=== PATIENT | male | born 1955 | race Caucasian/White ===

== ENCOUNTER 2019-04-18 14:24 | Emergency (ER) | payer BC ==
[~2019-04-18] VITALS: Ht 170.2 cm; Wt 65.9 kg
[2019-04-18 14:34] VITALS: BP 139/81; TEMP 97.8
[2019-04-18] MEDS ORDERED: SYNTHROID0.088 MG/T PO (14:46)
[2019-04-18 15:12] LABS: BASO # 0.1 (0.0-0.2); BASO % 0.4 % (0.0-2.0); EOS # 0.1 (0.0-0.7); EOS % 0.4 % (0-4.0); GRAN % 80.7 % (42.2-75.2); HEMATOCRIT 44.4 % (42.0-52.0); HEMOGLOBIN 15.7 g/dl (13.5-18.0); LYMPH # 1.1 (1.2-3.4); MEAN CELL VOLUME 91 fl (80.0-100.0); MEAN CORPUSCULAR HEMOGLOBIN 32 pg (27.0-31.0); MEAN CORPUSCULAR HGB CONC 35 g/dl (33.0-37.0); MONO # 0.9 (0.1-0.6); MONO % 7.9 % (1.7-9.3); PLATELET COUNT 291 K/mm3 (130-400); RED BLOOD COUNT 4.89 M/mm3 (4.20-5.60); REDCELL DISTRIBUTION WIDTH-CV 12.5 % (11.5-14.5)
[2019-04-18 15:28] LABS: ALANINE AMINOTRANSFERASE 43 U/L (21-72); ALBUMIN 4.6 gm/dL (3.5-5.0); ALKALINE PHOSPHATASE 69 U/L (50-136); ANION GAP 11 mmol/L (7-16); AST,SGOT 79 U/L (15-37); BILIRUBIN,TOTAL 1.4 mg/dL (0.0-1.0); BLOOD UREA NITROGEN 26 mg/dL (9-20); C-REACTIVE PROTEIN < 0.5 mg/dL (0.0-0.9); CALCIUM 9.3 mg/dL (8.4-10.2); CARBON DIOXIDE 29 mmol/L (22-30); CHLORIDE 101 mmol/L (98-107); CREATININE, serum 0.88 (0.66-1.25); GLUCOSE 143 mg/dL (74-106); LIPASE 137 U/L (23-300); POTASSIUM 3.8 mmol/L (3.4-5.0); SODIUM 141 mmol/L (137-145); TOTAL PROTEIN 7.6 gm/dL (6.4-8.2)
[2019-04-18 15:32] LABS: COLLECTION METHOD CLEAN CATCH
[2019-04-18 15:55] LABS: MUCOUS Present /lpf; PH 6 (5-8); SQUAMOUS EPITHELIAL 0-2 /hpf; URINE APPEARANCE Clear; URINE BACTERIA None Seen /hpf; URINE BILIRUBIN Negative (NEGATIVE); URINE BLOOD Negative (NEGATIVE); URINE COLOR Yellow; URINE GLUCOSE Negative (NEGATIVE); URINE KETONE Negative (NEGATIVE); URINE LEUKOCYTE ESTERASE Negative (NEGATIVE); URINE NITRATE Negative (NEGATIVE); URINE PROTEIN(semi-quant) Negative (NEGATIVE); URINE RBC 0-2 /hpf; URINE UROBILINOGEN Negative (NEGATIVE)
[2019-04-18] MEDS ORDERED: NORCO 325 MG-51 TAB PO (17:07)
[2019-04-18] MEDS ORDERED: ZOFRAN ODT4 MG PO (17:07)
[2019-04-18 17:38] VITALS: PULSE 88
== END 2019-04-18 17:38 | disposition home or self-care (01) ==
LOC: COL.ER 14:24
PROVIDERS: Emergency Medicine
DX: R10.13 Epigastric pain (principal); R11.0 Nausea; I10 Essential (primary) hypertension; E03.9 Hypothyroidism, unspecified; Z88.0 Allergy status to penicillin; Z98.890 Other specified postprocedural states
CPT/HCPCS: J2270; J2405; J7030; Q9967

== ENCOUNTER 2019-10-10 18:54 | Inpatient (IN) | payer MEDICARE, BC ==
[~2019-10-10] VITALS: Ht 170.2 cm; Wt 70.5 kg
[~2019-10-10 18:54] MED LIST: NORCO 325 MG-51 TAB PO; SYNTHROID0.088 MG/T PO; ZOFRAN ODT4 MG PO
[2019-10-10 20:53] VITALS: BP 147/88; PULSE 77; TEMP 98.3
[2019-10-10] MEDS ORDERED: PRINZIDE 12.5 M1 TAB PO (21:50)
--- NOTE | 2019-10-10 22:00 | NUR ---
PT ADMITTED FROM [facility] [place] [facility]IA EMS WITH DIAGNOSIS OF PANCREATITIS vs DIVERTICULITIS. PT SEENBY HOSPITALIST AND ENDO. SEE 5 PAGE ASSESSMENT.
[2019-10-10 23:29] VITALS: BP 126/73; PULSE 74; TEMP 98.3
[2019-10-11 00:47] LABS: INR 1.3 (0.8-3.0); PROTHROMBIN TIME 14.8 SECONDS (9.7-12.8)
[2019-10-11 00:51] LABS: MAGNESIUM 2.1 mg/dL (1.6-2.3); PHOSPHOROUS 3.2 mg/dL (2.5-4.5); SALICYLATE < 1.0 mg/dL
[2019-10-11 01:03] LABS: TROPONIN-I < 0.012 ng/mL (0.000-0.035)
[2019-10-11 03:29] VITALS: BP 141/81; PULSE 80; TEMP 98.2
[2019-10-11 06:45] LABS: BASO % 0.2 % (0.0-2.0); GRAN % 89.9 % (42.2-75.2); HEMATOCRIT 39.8 % (42.0-52.0); HEMOGLOBIN 13.6 g/dl (13.5-18.0); LYMPH # 0.9 (1.2-3.4); LYMPH % 4.5 % (20.0-51.0); MEAN CELL VOLUME 92 fl (80.0-100.0); MEAN CORPUSCULAR HEMOGLOBIN 31 pg (27.0-31.0); MEAN CORPUSCULAR HGB CONC 34 g/dl (33.0-37.0); MEAN PLATELET VOLUME 9.6 fl (7.4-10.4); MONO # 0.9 (0.1-0.6); MONO % 4.7 % (1.7-9.3); PLATELET COUNT 235 K/mm3 (130-400); RED BLOOD COUNT 4.33 M/mm3 (4.20-5.60); REDCELL DISTRIBUTION WIDTH-CV 13.1 % (11.5-14.5)
[2019-10-11 06:57] LABS: INR 1.3 (0.8-3.0); PROTHROMBIN TIME 15.2 SECONDS (9.7-12.8)
[2019-10-11 07:00] LABS: ALBUMIN 3.3 gm/dL (3.5-5.0); BILIRUBIN,TOTAL 1.5 mg/dL (0.0-1.0); CALCIUM 8.1 mg/dL (8.4-10.2); CREATININE, serum 0.71 (0.66-1.25); POTASSIUM 3.4 mmol/L (3.4-5.0)
--- NOTE | 2019-10-11 07:05 | NUR ---
IV THYROID MEDICATION PENDING. NOT ADMINISTERED PER PHARMACY/HOSPITAL POLICY DUE TO EXTENDED HALFLIFE OF IV THYROID MEDICATION.
[2019-10-11 08:30] VITALS: BP 132/67; PULSE 79; TEMP 98
--- NOTE | 2019-10-11 08:30 | NUR ---
PATIENT IS A&O. VSS. PATIENT C/O MODERATE, DULL PAIN IN LEFT FLANK AND ABDOMINAL AREA. PATIENT REQUESTING IV DILAUDID BEFORE GOING DOWN FOR MRCP TODAY. ABDOMEN IS ROUND, SOFT, AND WITH POSITIVE BOWL SOUNDS. PATIENT REPORTS HE IS PASSING GAS. BM WAS YESTERDAY. NPO. IV FLUIDS INFUSING VIA PUMP INTO LEFT FORARM. NO C/O N/V. HEAD TO TOE ASSESSMENT COMPLETE. STUDENT NURSE WORKING WITH PATIENT TODAY, SEE STUDENT CHARTING. PATIENT INDEPENDENT IN ROOM. AT BEDSIDE. CALL LIGHT IN REACH. NO OTHER NEEDS.
[2019-10-11 08:34] LABS: CHOLESTEROL RISK RATIO 2.9
--- NOTE | 2019-10-11 08:46 | NUR ---
PATIENT GOING DOWN FOR MRI VIA WC
--- NOTE | 2019-10-11 09:55 | NUR ---
PATIENT BACK IN ROOM FROM ERCP. TOLERATED PROCEDURE WELL. HOSPITALIST TEAM DEEPTHI. FAMILY AT BEDSIDE. MRCP RESULT REVIEWED. SEE ORDERS.
--- NOTE | 2019-10-11 10:48 | NUR ---
ANDREW met with the patient and his daughter, Faby, to discuss discharge plan. The patient lives in [place] with his , Gi (ph#[phone]). He reports independence with ADLs and does not have any DME. The patient's PCP is Dr. Dayron Mancini and he receives his medications at [facility]. He reports no difficulties obtaining his meds. The patient does not have advanced directives and he was not interested in completing them at this time. The patient plans to return home with his upon discharge. No additional needs at this time.
[2019-10-11 12:15] VITALS: BP 127/76; PULSE 71; TEMP 98.6
--- NOTE | 2019-10-11 13:09 | NUR ---
Pt c/o pain and was administered oxycodone at 1028. Pt stated pain medication helped. Pt seemed comfortable and eating clear liquid diet. No need at this time.
[2019-10-11 16:08] VITALS: BP 145/87; PULSE 74; TEMP 97.1
[2019-10-11 19:53] VITALS: BP 139/74; PULSE 78; TEMP 99.7
--- NOTE | 2019-10-11 21:08 | NUR ---
Patient doing well tonight. c/o moderte pain rated 5/10 to LLQ. prn manolo given. took scheduled medications without issue. patient teaching done regarding need for occult stool. IVF and IV abx infusing into L FA IV without issue. no further needs at this time. will continue to monitor.
[2019-10-11 23:59] VITALS: BP 136/70; PULSE 84; TEMP 98.2
[2019-10-12 03:11] VITALS: BP 143/77; PULSE 89; TEMP 99.5
--- NOTE | 2019-10-12 07:37 | NUR ---
Lying in bed with eyes open. Rating pain on left side of abd 4/10 and describes pain as constant. Explains that the pain is okay at this time. in room and says that she thinks the patient looks better today. Patient denies needs at this time.
[2019-10-12 07:44] LABS: BASO % 0.2 % (0.0-2.0); EOS % 0.1 % (0-4.0); GRAN # 14.1 (1.4-6.5); HEMATOCRIT 37.6 % (42.0-52.0); HEMOGLOBIN 12.7 g/dl (13.5-18.0); LYMPH # 0.7 (1.2-3.4); LYMPH % 4.4 % (20.0-51.0); MEAN CELL VOLUME 92 fl (80.0-100.0); MEAN CORPUSCULAR HEMOGLOBIN 31 pg (27.0-31.0); MEAN CORPUSCULAR HGB CONC 34 g/dl (33.0-37.0); MEAN PLATELET VOLUME 9.4 fl (7.4-10.4); MONO # 1.2 (0.1-0.6); MONO % 7.6 % (1.7-9.3); PLATELET COUNT 186 K/mm3 (130-400); RED BLOOD COUNT 4.07 M/mm3 (4.20-5.60); REDCELL DISTRIBUTION WIDTH-CV 12.8 % (11.5-14.5)
[2019-10-12 07:59] VITALS: BP 132/72; PULSE 71; TEMP 98.2
[2019-10-12 08:00] LABS: ALBUMIN 3.3 gm/dL (3.5-5.0); BILIRUBIN,TOTAL 1.4 mg/dL (0.0-1.0); CREATININE, serum 0.74 (0.66-1.25); POTASSIUM 3.7 mmol/L (3.4-5.0)
--- NOTE | 2019-10-12 09:25 | NUR ---
IV fluids dc'd and site INT'd. Administered Motrin for headache. Patient denies further needs at this time.
[2019-10-12 12:32] VITALS: BP 126/68; PULSE 78; TEMP 99.4
[2019-10-12 16:51] VITALS: BP 126/72; PULSE 62; TEMP 98.6
--- NOTE | 2019-10-12 17:10 | NUR ---
Sitting on edge of bed eating supper. Rating pain in abd 4/10 at this time and explains that it is tolerable at this time. Patient says that he may ask for medication for the pain in a little bit but denies needing any right now. in room. Patient denies further needs.
[2019-10-12 20:40] VITALS: BP 125/74; PULSE 71; TEMP 98.4
--- NOTE | 2019-10-12 20:40 | NUR ---
Pt. sitting up in bed at this time. Pt. is A&OX3, assessment complete. INT to lt. forearm patent. Pt. denies pain or other needs at this time. Call light within reach.
[2019-10-13 06:59] LABS: BASO % 0.3 % (0.0-2.0); EOS # 0.1 (0.0-0.7); EOS % 0.7 % (0-4.0); GRAN # 10.4 (1.4-6.5); GRAN % 83.3 % (42.2-75.2); HEMATOCRIT 37.1 % (42.0-52.0); HEMOGLOBIN 12.9 g/dl (13.5-18.0); LYMPH # 0.8 (1.2-3.4); LYMPH % 6.8 % (20.0-51.0); MEAN CELL VOLUME 91 fl (80.0-100.0); MEAN CORPUSCULAR HEMOGLOBIN 32 pg (27.0-31.0); MEAN CORPUSCULAR HGB CONC 35 g/dl (33.0-37.0); MEAN PLATELET VOLUME 9.9 fl (7.4-10.4); MONO % 8.4 % (1.7-9.3); PLATELET COUNT 210 K/mm3 (130-400); RED BLOOD COUNT 4.09 M/mm3 (4.20-5.60); REDCELL DISTRIBUTION WIDTH-CV 12.3 % (11.5-14.5)
--- NOTE | 2019-10-13 07:00 | NUR ---
Patient in chair eating breakfast. Vital signs stable. Reports no pain.
[2019-10-13 07:24] LABS: ALBUMIN 3.3 gm/dL (3.5-5.0); BILIRUBIN,TOTAL 1.3 mg/dL (0.0-1.0); CALCIUM 8.2 mg/dL (8.4-10.2); CREATININE, serum 0.7 (0.66-1.25); POTASSIUM 3.4 mmol/L (3.4-5.0); TOTAL PROTEIN 6.1 gm/dL (6.4-8.2)
[2019-10-13 07:48] VITALS: BP 124/68; PULSE 77; TEMP 98.2
[2019-10-13] MEDS ORDERED: NORVASC 5MG5 MG/TAB PO (09:38)
[2019-10-13] MEDS ORDERED: ROXICODONE 55 MG/TAB PO (09:39)
[2019-10-13] MEDS ORDERED: PROTONIX 40MG T40 MG PO (09:39)
[2019-10-13] MEDS ORDERED: SENOKOT S 50 MG1 TAB PO (10:15)
--- NOTE | 2019-10-13 10:45 | NUR ---
Patient is discharging home. Discharge instructions discussed with patient and his . No questions verbalized. INT discontinued by student. Copies of discharge instructions sent with patient. Explained when follow up is with Dr Mancini and that Dr Romero's office will call for his follow up appointment. Patient verbalized understanding. Explained he has prescriptions to get filled at the pharmacy. Patient walked out via wheel chair by [employer] student nurse.
[2019-10-13 11:06] VITALS: BP 121/80; PULSE 71; TEMP 98
--- NOTE | 2019-10-13 11:32 | NUR ---
INT discontinured intact. Applied pressure with gauze for 1 minute. Patient was taken to emergency entrance by wheelchair where was waiting.
--- NOTE | 2019-10-13 12:51 | NUR ---
Initial visit; Patient and his thanked [employer]ner for looking in on them and offering God's blessings and a thorough healing for Marc.
== END 2019-10-13 10:55 | disposition home or self-care (01) | DRG 439 ==
LOC: SURG 18:54
PROVIDERS: Internal Medicine Gastroenterology; Nurse Practitioner Family; Physician Assistant; ADMIT Family Medicine
DX: K85.90 Acute pancreatitis without necrosis or infection, unspecified (principal); E87.2 Acidosis; K57.92 Diverticulitis of intestine, part unspecified, without perforation or abscess without bleeding; E78.5 Hyperlipidemia, unspecified; K21.9 Gastro-esophageal reflux disease without esophagitis; E03.9 Hypothyroidism, unspecified; K76.9 Liver disease, unspecified; I10 Essential (primary) hypertension; K44.9 Diaphragmatic hernia without obstruction or gangrene; Z88.0 Allergy status to penicillin; Z85.850 Personal history of malignant neoplasm of thyroid; Z90.49 Acquired absence of other specified parts of digestive tract
CPT/HCPCS: 99222-AI; 99232-AI; 99233-AI; 99239; J1170; J1650; J1956; J2405; J7030